=== PATIENT | male | born 2000 | race Caucasian/White ===

== ENCOUNTER 2021-07-05 08:06 | Emergency (ER) | payer OTHER ==
--- NOTE | 2021-07-05 09:10 | EDM.PDOC ---
ED HPI GENERAL MEDICAL PROBLEM - General Chief Complaint: Head Injury Stated Complaint: [id number] FELL AND HIT HEAD AT WORK Time Seen by Provider: 07/05/21 08:25 Source of Information: Reports: Patient History Limitations: Reports: No Limitations - History of Present Illness INITIAL COMMENTS - FREE TEXT/NARRATIVE: This 21 yo male patient was working ([employer]) and stepped back while in the truck. The patient reports his foot slipped and he fell about 3 feet to the ground (hit the back of head and right elbow). Onset: Today Duration: Minutes: Location: Reports: Head, Upper Extremity, Right Quality: Reports: Ache, Dull Severity: Moderate Improves with: Reports: None Worsens with: Reports: None Context: Reports: Other Associated Symptoms: Reports: No Other Symptoms - Related Data Allergies Allergy/AdvReac Type Severity Reaction Status Date / Time No Known Allergies Allergy Verified 07/05/21 08:20 Home Meds: Home Meds . [No Known Home Meds] 07/05/21 [History] Past Medical History - Past Health History Medical/Surgical History: Denies Medical/Surgical History Social & Family History - Tobacco Use Tobacco Use Status *Q: Never Tobacco User Second Hand Smoke Exposure: No - Caffeine Use Caffeine Use: Reports: None - Recreational Drug Use Recreational Drug Use: No ED ROS GENERAL - Review of Systems Review Of Systems: Comprehensive ROS is negative, except as noted in HPI. ED EXAM, HEAD INJURY - Physical Exam Exam: See Below Exam Limited By: No Limitations General Appearance: Alert, WD/WN, No Apparent Distress Head: Scalp Tenderness (Posterior) Nexus Criteria: No: Posterior, Midline Cervical Tenderness, Evidence of Intoxication, Altered Level of Consciousness, Focal Neurological Deficit, Painful Distraction Injuries Eyes: Bilateral Eye: EOMI, Normal Inspection, PERRL Ears: Normal External Exam, Normal Canal, Hearing Grossly Normal, Normal TMs Nose: Normal Inspection, Normal Mucousa, No Blood Throat/Mouth: Normal Inspection, Normal Lips, Normal Teeth, Normal Gums, Normal Oropharynx, Normal Voice, No Airway Compromise Neck: Non-Tender, Full Range of Motion, Normal Alignment, Normal Inspection Respiratory: No Respiratory Distress, Lungs Clear, Normal Breath Sounds, No Accessory Muscle Use, Chest Non-Tender Cardiovascular: Normal Peripheral Pulses, Regular Rate, Rhythm, No Edema, No Gallop, No JVD, No Murmur, No Rub GI/Abdominal Exam: Normal Bowel Sounds, Soft, Non-Tender, No Organomegaly, No Distention, No Abnormal Bruit, No Mass (Male) Exam: Deferred Rectal (Males) Exam: Deferred Back Exam: Full Range of Motion, Normal Inspection, NT Extremities: Arm Pain (right elbow contusion with small abrasion) Neurologic: sound mixer II-XII nml As Tested, No Motor/Sensory Deficits, Alert, Normal Mood/Affect, Oriented x 3 Skin: Normal Color, Warm/Dry - Mika Coma Score Best Eye Response (Mika): (4) Open Spontaneously Best Verbal Response ([place]): (5) Oriented Best Motor Response (Mika): (6) Obeys Commands [place] Total: 15 Course - Vital Signs Last Recorded V/S: Last Vital Signs Temp 98.7 F 07/05/21 08:20 Pulse 99 07/05/21 08:20 Resp 20 07/05/21 08:20 BP 136/96 H 07/05/21 08:20 Pulse Ox 99 07/05/21 08:20 - Orders/Labs/Meds Orders: Active Orders 24 hr Category Date Time Status Elbow Min 3V Rt [CR] Urgent Exams 07/05/21 08:24 Ordered Departure - Departure Time of Disposition: 09:07 Disposition: Home, Self-Care 01 Condition: Fair Clinical Impression: Fall from stationary vehicle Qualifiers: Encounter type: initial encounter Qualified Code(s): W17.89XA - Other fall from one level to another, initial encounter Contusion of right elbow Qualifiers: Encounter type: initial encounter Qualified Code(s): S50.01XA - Contusion of right elbow, initial encounter Scalp contusion Qualifiers: Encounter type: initial encounter Qualified Code(s): S00.03XA - Contusion of scalp, initial encounter - Discharge Information *PRESCRIPTION DRUG MONITORING PROGRAM REVIEWED*: Not Applicable *COPY OF PRESCRIPTION DRUG MONITORING REPORT IN PATIENT HUBER: Not Applicable Instructions: Contusion, [id number], Elbow Contusion, [id number] Forms: ED Department Discharge Care Plan Goals: The patient was advised of the examination and x-ray results during the visit. The patient was encouraged to rest and ice his elbow. If the patient has any additional symptoms or concerns, the patient should either return to the emergency department or visit his primary care facility. Sepsis Event Note (ED) - Evaluation Sepsis Screening Result: No Definite Risk - Focused Exam Vital Signs: Vital Signs Temp Pulse Resp BP Pulse Ox 07/05/21 08:20 98.7 F 99 20 136/96 H 99 - My Orders Last 24 Hours: My Active Orders 07/05/21 08:24 Elbow Min 3V Rt [CR] Urgent - Assessment/Plan Last 24 Hours: My Active Orders 07/05/21 08:24 Elbow Min 3V Rt [CR] Urgent
--- NOTE | 2021-07-05 09:23 | CR ---
PROCEDURE INFORMATION: Exam: XR Right Elbow Exam date and time: 07/05/2021 8:52 AM Age: 21 years old Clinical indication: Injury or trauma; Fall; Work related; Laceration; Elbow; Right; Injury date: 07/05/2021; Additional info: Right elbow pain due to a fall while at work TECHNIQUE: Imaging protocol: XR Right elbow. Views: 3 or more views. COMPARISON: No relevant prior studies available. FINDINGS: Bones/joints: Normal. Soft tissues: Normal. IMPRESSION: No acute findings.
== END 2021-07-05 09:15 | disposition home or self-care (01) ==
LOC: DL.ED 08:06
DX: S00.03XA Contusion of scalp, initial encounter (principal); S50.01XA Contusion of right elbow, initial encounter; W17.89XA Other fall from one level to another, initial encounter; Y92.89 Other specified places as the place of occurrence of the external cause; Y99.0 Civilian activity done for income or pay
CPT/HCPCS: 73080-RT; 99283